=== PATIENT | male | born 1955 | race Caucasian/White ===

== ENCOUNTER 2024-10-27 23:02 | Emergency (ER) | payer OTHER ==
[~2024-10-27] VITALS: Ht 167.6 cm; Wt 74.8 kg
[2024-10-27] MEDS: IV NS 0.9% 1,000 ML BAG IV ONE (23:55)
[2024-10-28 00:11] LABS: PLATELET COUNT (AUTO) 212 K/uL (150-450); RED BLOOD CELL COUNT(AUTO) 5.33 MIL/uL (4.5-6.0); RED CELL DISTRIBUTION WIDTH 13.3 % (11.5-15.0); WHITE BLOOD COUNT (AUTO) 8.7 K/uL (4.3-11.0)
[2024-10-28 00:17] LABS: CALCIUM, SERUM 9.3 mg/dL (8.5-10.1); CREATININE 1.0 mg/dL (0.6-1.3); SODIUM SERUM 134 mmol/L (136-145); UREA NITROGEN, BLOOD 19 mg/dL (7-18)
[2024-10-28 00:19] LABS: SITE, VBG RIGHT RADIAL; VBG BASE EXCESS -4.1 mmol/L (-2.0-3.0); VBG HCO3 19.3 mmol/L (22.0-29.0); VBG MetHb 0.3 % (0.5-1.5); VBG OXYGEN SATURATION 95.6 % (60.0-85.0); VBG PCO2 31.5 mmHg (38.0-54.0); VBG PH 7.406 (7.320-7.430); VBG PO2 76.1 mmHg (23.0-48.0); VBG TOTAL HEMOGLOBIN 16.2 G/dL (13.5-17.5)
[2024-10-28 00:36] LABS: ASPARTATE AMINOTRANSFERASE 13 U/L (15-37); NT-PRO BNP 136 pg/mL (0-125); TOTAL PROTEIN, SERUM 7.9 g/dL (6.4-8.2)
[2024-10-28] MEDS ORDERED: INSULIN REGULAR, HUMAN 100 UNIT/ML 10 ML VIAL ONE (01:30)
[2024-10-28] MEDS: INSULIN REGULAR, HUMAN 100 UNIT/ML 10 ML VIAL SQ ONE (01:32)
[2024-10-28 01:38] VITALS: BP 178/79; TEMP 98.5; O2SAT 97
== END 2024-10-28 01:39 | disposition home or self-care (01) ==
LOC: ER 23:11
DX: E11.65 Type 2 diabetes mellitus with hyperglycemia (principal); R00.2 Palpitations; R06.02 Shortness of breath
CPT/HCPCS: 99285; 96360; 71045; 93005; 82803 ×2; 85025; 80048; 82010; 80076; 36415; 84484; 83880; 82962; 36600; 96372; J1815